=== PATIENT | female | born 1935 | race Caucasian/White ===

== ENCOUNTER 2017-05-22 15:57 | Emergency (ER) | payer OTHER ==
[~2017-05-22] VITALS: Ht 162.6 cm; Wt 71.2 kg
--- NOTE | ~2017-05-22 | US84 ---
[id number] [facility] [address]. [place], [place] [address] [id number] E MR#: [id number] Acc #: [id number] NAME: SOFIA DE LOS SANTOS : 1935 SEX: F STUDY DATE/TIME: 05/22/2017 17:33 UNIT: [facility] ROOM: STUDY DESCRIPTION: US LE Veins Complete Armando Stdy Attending Physician: Mirna Peterson M.D. Ordering Physician: Mirna Peterson M.D. Primary Care Physician: Primary Care Physician No MEDICAL IMAGING REPORT This report is preliminary unless electronic signature is present EXAM Bilateral lower extremity venous Doppler HISTORY Pain in both legs for 1 day. Patient on blood thinners. FINDINGS 2-D and Doppler evaluation of lower extremities demonstrates normal flow and compressibility of the major veins of both lower extremities. No intraluminal thrombus identified. Superficial veins also appear patent. There are bilateral cystic structures within the popliteal fossa compatible with Cabello's cysts. On the right, this measures 3 x 1.4 x 4.6 cm and on the left measures 3.8 x 0.7 x 1.6 cm. IMPRESSION 1. No sonographic evidence of DVT. 2. Bilateral Cabello's cysts. Dictated by... Lavelle Owusu M.D. THIS IS AN ELECTRONICALLY VERIFIED REPORT Lavelle Owusu M.D. at 05/22/2017 10:04 PM Conrado TD: 05/22/2017 19:34 JOB #: [id number] MEDICAL IMAGING REPORT Page 1 of 1 COPY
--- NOTE | ~2017-05-22 | CT16 ---
[facility] A Service of [facility] RADIOLOGY TEXT RESULTS PATIENT: SOFIA DE LOS SANTOS LOCATION: [facility] : 35 UNIT #: [id number] AGE: [address]: Xander Leonard MD SEX: F ORDER DR: [id number] [facility] [address] [place], [place] [address] [id number] E MR#: [id number] Acc #: [id number] NAME: SOFIA DE LOS SANTOS. : 1935 SEX: F STUDY DATE/TIME: 05/22/2017 19:03 UNIT: [facility] ROOM: STUDY DESCRIPTION: CT Angio Chest for PE Attending Physician: Xander Leonard Ordering Physician: Mirna Peterson M.D. Primary Care Physician: Primary Care Physician No MEDICAL IMAGING REPORT This report is preliminary unless electronic signature is present EXAM CTA chest PE protocol HISTORY Elevated D-dimer and fever today. This CT exam was performed with one or more of the following radiation dose reduction techniques: automatic exposure control, adjustment of mA and/or kV according to patient size, and iterative reconstruction. FINDINGS IV contrast enhanced CT angiogram of the chest was performed with 3-D reconstructions. Mild bronchiectasis in the bilateral lower lobes. Minimal linear atelectasis or scarring in the posterior lower lobes bilaterally. No airspace infiltrates or effusions. No pulmonary embolus. Normal pulmonary arterial enhancement. Small hiatal hernia. No adenopathy. IMPRESSION 1. No pulmonary embolus. 2. Some small hiatal hernia. 3. Mild bronchiectasis in the bilateral lower lobes. Dictated by... Pantera Dunbar M.D. THIS IS AN ELECTRONICALLY VERIFIED REPORT Pantera Dunbar M.D. at 05/22/2017 11:23 PM DFL/chente [facility] A Service [facility] RADIOLOGY TEXT RESULTS PATIENT: SOFIA DE LOS SANTOS LOCATION: [facility] : 35 UNIT #: [id number] AGE: [address]: Xander Leonard MD SEX: F ORDER DR: TD: 05/22/2017 21:39 JOB #: [id number] MEDICAL IMAGING REPORT Page 1 of 1 COPY
--- NOTE | ~2017-05-22 | CR72 ---
[facility] A Service of [facility] RADIOLOGY TEXT RESULTS PATIENT: SOFIA DE LOS SANTOS LOCATION: [facility] : 35 UNIT #: [id number] AGE: [address]: Xander Leonard MD SEX: F ORDER DR: [id number] [facility] [address] [place], [place] [address] [id number] E MR#: [id number] Acc #: [id number] NAME: SOFIA DE LOS SANTOS : 1935 SEX: F STUDY DATE/TIME: 05/22/2017 17:05 UNIT: [facility] ROOM: STUDY DESCRIPTION: CR Chest Single View Portable Attending Physician: Mirna Peterson M.D. Ordering Physician: Mirna Peterson M.D. Primary Care Physician: No Primary Care Physician MEDICAL IMAGING REPORT This report is preliminary unless electronic signature is present EXAM Portable chest HISTORY Fever for 1 year. FINDINGS Cardiac size and pulmonary vascularity are normal. Mild right lower thoracic curve. Mild segmental elevation of the right hemidiaphragm. 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 No airspace infiltrates or effusions. IMPRESSION No acute findings. No active disease. Dictated by... Pantera Dunbar M.D. THIS IS AN ELECTRONICALLY VERIFIED REPORT Pantera Dunbar M.D. at 05/22/2017 11:22 PM NKECHI/diaz TD: 05/22/2017 19:01 JOB #: [id number] MEDICAL IMAGING REPORT Page 1 of 1 COPY
[~2017-05-22 15:57] MED LIST: ATENOLOL PO; GLUCOPHAGE XR500 MG PO; LOTREL 10/20 MG1 CAP PO; PLAVIX PO
[2017-05-22 17:00] LABS: BASOPHIL% 0.2 % (0-2.5); HEMATOCRIT 40.9 % (35.0-45.0); HEMOGLOBIN 13.4 gm/dL (12.0-16.0); LYMPHOCYTE# 0.6 X10e3 (1.0-3.5); LYMPHOCYTE% 3.9 % (17.0-45.0); MEAN CELL VOLUME 86.7 FL (83-96); MEAN CORPUSCULAR HEMOGLOBIN 28.5 PG (28-34); MEAN CORPUSCULAR HGB CONC 32.9 g/dL (30-36); MEAN PLATELET VOLUME 10.1 FL (6.5-11.5); MONOCYTE# 1.4 X10e3 (0-1.0); MONOCYTE% 9.4 % (3.0-12.0); NEUTROPHIL# 12.9 X10e3 (1.5-7.1); NEUTROPHIL% 86.5 % (40-75); PLATELET COUNT 159 X10e3 (140-420); RED BLOOD COUNT 4.71 X10e (3.90-5.30); RED CELL DISTRIBUTION WIDTH 14.4 % (11.0-15.5); WHITE BLOOD COUNT 14.9 X10e3 (4.0-10.5)
[2017-05-22 17:01] LABS: DIFF IND NO
[2017-05-22 17:26] LABS: ALBUMIN SERUM 3.9 g/dL (3.5-5.0); BILIRUBIN, DIRECT 0.1 mg/dL (0.0-0.2); BILIRUBIN,TOTAL 1.1 mg/dL (0.2-2.0); BUN/CREATININE RATIO 16.25; CALCIUM SERUM 8.5 mg/dL (8.4-10.2); CREATININE SERUM 0.8 mg/dL (0.6-1.4); GLOM FILT RATE Estimated 69.2 mL/min (>60); MAGNESIUM 1.8 mg/dL (1.6-3.0); POTASSIUM 3.8 mmol/L (3.5-5.1); PROTEIN TOTAL SERUM 6.9 g/dL (6.0-8.3)
[2017-05-22 20:32] LABS: URINE SOURCE CLEAN CATCH
[2017-05-22 20:38] LABS: URINE APPEARANCE CLOUDY; URINE BILIRUBIN NEG (NEG); URINE BLOOD 2+ (NEG); URINE COLOR YELLOW; URINE GLUCOSE NEG (NEG); URINE KETONE NEG (NEG); URINE LEUKOCYTE ESTERASE 2+ (NEG); URINE NITRATE POS (NEG); URINE PH 6.5 (5-8); URINE PROTEIN NEG (NEG); URINE SPECIFIC GRAVITY 1.036 (1.003-1.035)
[2017-05-22 20:40] LABS: CULTURE INDICATED? YES; URINE BACTERIA AUWI 4+ (NEGATIVE); URINE SQUAMOUS EPITHELIAL CELL NONE SEEN /[HPF]; UWBCS1 AUWI 100-200 (0-5)
== END 2017-05-22 21:03 | disposition home or self-care (01) ==
LOC: CED 15:57
PROVIDERS: Student in an Organized Health Care Education/Training Program
DX: M71.22 Synovial cyst of popliteal space [Baker], left knee (principal); M71.21 Synovial cyst of popliteal space [Baker], right knee; N30.00 Acute cystitis without hematuria; I25.10 Atherosclerotic heart disease of native coronary artery without angina pectoris; I10 Essential (primary) hypertension; Z79.899 Other long term (current) drug therapy
CPT/HCPCS: 36415; 71010; 71275; 80048; 80076; 81003; 82550; 83735; 83880; 85025; 85379; 87086; 87088; 87186; 93970; 99284; Q9967